=== PATIENT | male | born 1965 | race Caucasian/White ===

== ENCOUNTER 2022-08-21 21:43 | Emergency (ER) | payer BC ==
[2022-08-21] MEDS ORDERED: Benzonatate 100 MG Cap PO ONE (22:26)
[2022-08-21 22:35] LABS: CORONAVIRUS COVID-19 NAA NEGATIVE (NEGATIVE); INFLUENZA A NAA POSITIVE (NEGATIVE); INFLUENZA B NAA NEGATIVE (NEGATIVE); RESPIRATORY SYNCYTIAL VIR NAA NEGATIVE (NEGATIVE)
[2022-08-21] MEDS ORDERED: Oseltamivir 75 MG Cap PO ONE (22:53)
== END 2022-08-21 23:06 | disposition home or self-care (01) ==
LOC: MW.ED 21:43
DX: J11.1 Influenza due to unidentified influenza virus with other respiratory manifestations (principal); I10 Essential (primary) hypertension; M10.9 Gout, unspecified; Z79.899 Other long term (current) drug therapy; Z20.822 Contact with and (suspected) exposure to COVID-19
CPT/HCPCS: 0241U; 71045; 99283; A9270